=== PATIENT | male | born 1940 | race Caucasian/White ===

== ENCOUNTER 2016-09-06 05:28 | Inpatient (IN) | payer BC ==
[2016-08-31 11:04] LABS: BASOPHILS 0.5 %; BASOPHILS ABSOLUTE 0.03 10/3/uL (0.0-0.16); EOSINOPHILS 3.6 %; EOSINOPHILS ABSOLUTE 0.23 10/3/uL (0.0-0.53); HEMOGLOBIN 12.3 g/dL (13.6-17.8); IMMATURE GRANULOCYTES 0.2 %; IMMATURE GRANULOCYTES ABSOLUTE 0.01 10/3/uL (0.0-0.11); LYMPHOCYTES 36.8 %; LYMPHOCYTES ABSOLUTE 2.33 10/3/uL (0.67-4.30); MEAN CORPUS HGB CONC 33.2 g/dL (32.0-36.0); MEAN CORPUSCULAR HEMOGLOB 32.7 pg (26.0-34.0); MEAN CORPUSCULAR VOLUME 98.4 fL (80-100); MEAN PLATELET VOLUME 10.7 fL (9.2-13.0); MONOCYTES 9.6 %; MONOCYTES ABSOLUTE 0.61 10/3/uL (0.21-1.20); NEUTROPHILS 49.3 %; NEUTROPHILS ABSOLUTE 3.12 10/3/uL (2.02-8.40); PLATELET COUNT 218 10/3/uL (150-400); RBC DISTRIBUTION WIDTH 15.4 % (12.0-16.0); RED CELL COUNT 3.76 10/6/uL (4.7-6.1); WHITE BLOOD CELLS 6.3 10/3/uL (4.5-10.5)
[2016-08-31 11:05] LABS: MANUAL DIFF NO %
[2016-08-31 11:09] LABS: INTERNATIONAL NORMAL RATI 1.1 UNITS (-); PROTIME (NOT ORD) 13.7 SEC (12.0-14.5)
[2016-08-31 11:11] LABS: ASCORBIC ACID (UR NOT ORDER) NEG (NEG); BILIRUBIN, URINE NEGATIVE (NEG); KETONE, URINE NEGATIVE (NEG); LEUKOCYTE ESTERASE(NOT OR NEG (NEG); WBC (NOT ORDERED) (RFLEX) 1 (0-5)
[2016-08-31 11:30] LABS: % IRON SAT 20 % (20-50); A/G RATIO 1.3 (0.7-1.9); ALBUMIN 3.6 G/DL (3.5-5.0); ALKALINE PHOSPHATASE 58 U/L (45-117); BUN (BLOOD UREA NITROGEN) 15 MG/DL (6-23); CALCIUM, SERUM 9.1 MG/DL (8.5-10.4); CHLORIDE, SERUM 107 MMOL/L (96-112); CO2 (CARBON DIOXIDE) 30 MMOL/L (24-34); CREATININE 1.27 MG/DL (0.70-1.30); GFR AFRICAN AMERICAN 63 ML/MIN (>=60); GFR NON AFRICAN AMERICAN 55 ML/MIN (>=60); GLOBULIN 2.8 G/DL (2.5-4.1); GLUCOSE, SERUM 81 MG/DL (60-99); IRON BINDING CAPACITY 345 MCG/DL (250-450); IRON, SERUM 68 MCG/DL (35-150); POTASSIUM, SERUM 4.7 MMOL/L (3.5-5.3); SGOT(AST) 13 U/L (5-40); SGPT(ALT) 18 U/L (5-65); SODIUM, SERUM 139 MMOL/L (135-148); TOTAL BILIRUBIN 0.4 MG/DL (0-1.2); TOTAL PROTEIN 6.4 G/DL (6.0-8.5)
--- NOTE | ~2016-09-06 | CN ---
Consultation Report [facility] [address] [place]. [address] NAME: DRAKE VIGIL : 39 STATUS : ADM IN PAT#: [id number] AGE: 75 ADM/REG DATE : 09/06/16 MR#: [id number] REPORT SERV DATE: 09/07/16 DICTATED BY: MAURISIO HUGO DATE: 09/07/16 REPORT STATUS : Draft TRANSCRIBED BY: MODL DATE: 09/07/16 DATE OF CONSULTATION: 09/07/2016 REASON FOR CONSULTATION: Diabetes management. HISTORY OF PRESENT ILLNESS: The patient is a 75-year-old male. He is status post aortic valve replacement and CABG. Reason for consultation is diabetes management. The patient has been on an insulin drip since surgery. He is normally controlled on oral medications at home, specifically Glucophage 1000 b.i.d., Actos 45, and Glucotrol 10 b.i.d. He states his average A1c is 6.5, rarely over 7, his last available from August of this year is 6.1. He rates his appetite as fair as although talking to nursing, he seems to be eating less than 25% meals, but has had some p.o. intake today. He was managed the majority of postop day one with insulin drip 1-3 units. He did require titration up to 5 units today, but has now trended back down to 2 units. He reports no nausea, vomiting, or other obvious indicators of decreased p.o. intake. Otherwise, he is without complaints. PAST MEDICAL HISTORY: Coronary disease, diabetes, and he has an upcoming surgery for hernia repair. PAST SURGICAL HISTORY: As covered above. HOME MEDICATIONS: Aspirin 81, Lipitor 20, Cosopt eye drops, Glucotrol 10 b.i.d., Trandate 100 b.i.d., Xalatan eye drops, Glucophage 1000 b.i.d., and Actos 45. ALLERGIES: NONE. FAMILY HISTORY: Noncontributory. SOCIAL HISTORY: Noncontributory. REVIEW OF SYSTEMS: He is currently not having shortness of breath, chest pain, nausea, or vomiting. PHYSICAL EXAMINATION: VITAL SIGNS: BP 126/62, temp 98, pulse 63, respirations 30, sat 98%. GENERAL: He is awake, alert, and oriented. HEENT: Normocephalic and atraumatic. Sclerae anicteric. NECK: Supple. HEART: Regular rate and rhythm. LUNGS: Clear anteriorly. ABDOMEN: Nontender and nondistended. NEUROLOGIC: Nonfocal. LABORATORY DATA: Sodium 144, potassium 4.3, chloride 115, CO2 of 22, BUN and creatinine 24 and 1.24, creatinine is down from 1.4 yesterday. White count is 10.5, H and H 9.8 and 29.2, Consultation Report [address] [address] NAME: DRAKE VIGIL : 39 STATUS : ADM IN [facility]#: [id number] AGE: 75 ADM/REG DATE : 09/06/16 MR#: [id number] REPORT SERV DATE: 09/07/16 DICTATED BY: MAURISIO HUGO DATE: 09/07/16 REPORT STATUS : Draft TRANSCRIBED BY: RORO DATE: 09/07/16 platelets are 108. Blood sugars have been averaging under 150 on 2-5 units of IV insulin. ASSESSMENT: Diabetes mellitus, previously controlled on oral meds at home with excellent A1cs, postop from CABG and valve replacement. PLAN: We will transition drip to off. We will transition over to sliding scale and eventually p.o. meds. We will continue to follow. Thank you for the consultation. FARIDA/RORO Maurisio Hugo M.D. / [id number] CC: Placido Arboleda MD
--- NOTE | ~2016-09-06 | DS ---
Discharge Summary [facility] [address] [place]. [address] NAME: DRAKE VIGIL : 39 STATUS : DIS IN PAT#: [id number] AGE: 76 ADM/REG DATE : 09/06/16 MR#: [id number] REPORT SERV DATE: 11/23/16 DICTATED BY: LORENZO FORTE DATE: 11/22/16 REPORT STATUS : Draft TRANSCRIBED BY: RORO DATE: 11/22/16 Data Collection from hospitalization DISCHARGE DIAGNOSES: 1. Aortic valve stenosis, status post aortic valve replacement. 2. Coronary artery disease, status post coronary artery bypass grafting. 3. Type 2 non-insulin dependent diabetes mellitus. 4. Hypertension. 5. Hyperlipidemia. 6. Obesity. 7. Glaucoma. CONSULTATIONS: Dr. Aric Steele and Dr. Americo Graham. PROCEDURES PERFORMED: Aortic valve replacement using a 27 mm pericardial valve (Magna Ease); coronary artery bypass grafting x5 with ADDISON to the mid LAD into the distal left anterior descending vessel as a sequential graft, reverse saphenous vein graft placed to the first obtuse marginal, reverse saphenous vein graft placed to the third obtuse marginal, reverse saphenous vein graft placed to the posterior descending artery; endoscopic vein harvest of the saphenous vein from the right and left side; transesophageal echocardiography on 09/06/2016. PATHOLOGY: Aortic valve replacement - nodular calcification of valvular leaflets. DISCHARGE MEDICATIONS: Cordarone 200 mg twice a day, aspirin 81 mg daily, Lipitor 40 mg at bedtime, Cosopt one drop twice a day, Lasix 20 mg daily as instructed, Glucotrol 10 mg twice a day, [place] 5/325 one to two tablets every four hours as needed, Xalatan one drop at bedtime both eyes, Glucophage 1000 mg with breakfast and supper, Lopressor 12.5 mg twice a day, Protonix 40 mg before breakfast, Actos 45 mg every morning, K-Dur 20 mEq daily, Jantoven 3 mg every evening. CONDITION AT DISCHARGE: Stable. DISPOSITION: The patient was discharged home on a low-cholesterol, low-sodium, 1800-calorie cardiac/diabetic diet with no concentrated carbohydrates, and activities as instructed. He would follow up with Héctor Ross on 10/21/[address] Tyhsawn Ko on 09/30/2016. He would follow up with Dr. Ofe Perez on 09/24/2016. He would follow up in the [facility] on 09/13/2016 and would follow up at cardiac rehab at [facility] on 10/18/2016. HOSPITAL COURSE: This is a 75-year-old male who has a history of aortic valve stenosis and recently diagnosis of coronary artery disease. His main complaint is that of fatigue. He does deny dyspnea and angina. Echocardiography demonstrated good ventricular function with ejection fraction of 60%. Valve area was estimated at 0.75 cm2 with peak gradient of 79 mmHg. He has significant 3+ vessel coronary disease. The ascending aorta was mildly enlarged at 4 cm. The aortic root was not dilated. He had a tricuspid aortic valve. Treatment options were discussed and it was elected to proceed with surgical intervention. He was admitted to the hospital at this time for further evaluation and treatment. Discharge Summary [place] [id number] [facility] [place]. [address] NAME: DRAKE VIGIL : 39 STATUS : DIS IN PAT#: [id number] AGE: 76 ADM/REG DATE : 09/06/16 MR#: [id number] REPORT SERV DATE: 11/23/16 DICTATED BY: LORENZO FORTE DATE: 11/22/16 REPORT STATUS : Draft TRANSCRIBED BY: RORO DATE: 11/22/16 Upon admission, he was taken to the operating room where he underwent the above-mentioned procedure. He tolerated this well and there were no complications and postoperatively, the patient was seen by Dr. Americo Graham. The patient was still intubated and sedated. Cardene drip was being weaned. Statin agent was going to be resumed. Aspirin was resumed as well. He had been on Coumadin for three months after the pacing wires were removed. He had no edema on postop day #1. He was just sitting in a chair. He has had 1+ pedal edema. Creatinine level was 1.24. INR level was 1.3. Cardene drip was being weaned as tolerated. The patient was seen by Dr. Aric Steele regarding diabetes management. The patient's diabetes has previously been controlled on oral medications at home with excellent hemoglobin A1c. We were going to transition the drip to off. We were going to transition over to sliding scale and eventually oral medications. Creatinine level was now 1.24. White count was 10.5. Mediastinal chest tube was removed. He was transferred to the step- down unit. He was evaluated by Physical Therapy. He has had no chest pain, shortness of breath, or palpitations. On 09/09/2016, he had no dyspnea or chest pain. Creatinine was 1.26. He was in sinus rhythm. He had no edema. He had decreased breath sounds in his lung bases. Pepcid was discontinued. Discharge planning was performed. He was wanting to go home. INR level was 1.3. Blood pressure was well controlled. Coumadin had begun. On 09/10/2016, he continued to be well. Chest x-ray showed small left effusion. He was alert and oriented. Discharge instructions were given. Due to his improved and stable condition, he was discharged home with the above-stated instructions. Information collected by: Winnie Stafford I submit the above information as my discharge summary. TG/MODL Lorenzo Forte M.D. / [id number] CC: Placido Arboleda MD Allen E Atchley, M.D.
--- NOTE | ~2016-09-06 | OP ---
Record Of Operation [facility] [address] [place]. [address] NAME: DRAKE VIGIL : 39 STATUS : ADM IN PAT#: [id number] AGE: 75 ADM/REG DATE : 09/06/16 MR#: [id number] REPORT SERV DATE: 09/08/16 DICTATED BY: VALENTINA FORTE DATE: 09/08/16 REPORT STATUS : Draft TRANSCRIBED BY: MODL DATE: 09/08/16 DATE OF PROCEDURE: 09/06/2016 PREOPERATIVE DIAGNOSES: 1. Aortic valve stenosis. 2. Coronary artery disease. 3. Type 2 xsn-ieqdqyv-ybhnluaag diabetes mellitus. 4. Hypertension. 5. Hyperlipidemia. 6. Obesity. POSTOPERATIVE DIAGNOSES: 1. Aortic valve stenosis. 2. Coronary artery disease. 3. Type 2 xmq-meoesup-uhmojwgaz diabetes mellitus. 4. Hypertension. 5. Hyperlipidemia. 6. Obesity. PROCEDURE PERFORMED: 1. Aortic valve replacement using a 27 mm pericardial valve (Magna Ease). 2. Coronary artery bypass grafting x5, left internal mammary artery placed to the mid left anterior descending and to the distal left anterior descending vessel as a sequential graft. Reverse saphenous vein graft placed to the first obtuse marginal, reverse saphenous vein graft placed to the third obtuse marginal, reverse saphenous vein graft placed to the posterior descending artery. 3. Endoscopic vein harvest, saphenous vein from the right and left thighs. 4. Transesophageal echocardiography. SURGEON: Valentina Forte M.D. PATIENT REGISTRAR: Morro Martino and Guero Pereira. ANESTHESIA: General with Dr. Quiles. CARDIOLOGISTS: Tyshawn Ko M.D. 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 His main complaint is that of fatigue. He does deny dyspnea and angina. Echocardiography demonstrated good ventricular function with EF of 60%. Valve area was estimated at 0.75 cm2 with a peak gradient of 79 mmHg. He has significant 2+ vessel coronary disease. Ascending aorta was mildly enlarged at 4 cm. The aortic root was not dilated. He had a tricuspid aortic valve. We saw the patient in our office and discussed possible coronary bypass grafting and aortic valve replacement with his family and after discussing the operation, its indications, risks, they wished to proceed. STS calculated risk of mortality was 3%, morbidity and Record Of Operation [place] [id number] [place]. [address] NAME: DRAKE VGIIL : 39 STATUS : ADM IN PAT#: [id number] AGE: 75 ADM/REG DATE : 09/06/16 MR#: [id number] REPORT SERV DATE: 09/08/16 DICTATED BY: VALENTINA FORTE DATE: 09/08/16 REPORT STATUS : Draft TRANSCRIBED BY: RORO DATE: 09/08/16 mortality was less than 15%. FINDINGS AT OPERATION: 1. Cross-clamp 135 minutes. Total pump time 154 minutes. 2. LAD in the mid vessel was a 2 mm moderately diseased vessel. A 1 mm probe could not pass approximately 2 cm distal down the LAD into the distal portion of the LAD. There was good runoff through the JOSE LUIS graft as assessed by Doppler; however, I felt that sequential grafting should be performed to guarantee or ensure the good perfusion of the distal LAD. 3. The distal LAD was 1.5 mm and heavily diseased. The end of this 2 mm ADDISON was anastomosed to it with good runoff. 4. The diagonal graft vessel was too small to graft. 5. The first obtuse marginal was 2 mm moderately diseased. A 4.5 mm RSVG was anastomosed to it with good runoff. 6. The third obtuse marginal was 1.5 mm mildly diseased. A 4.5 mm RSVG was anastomosed to it with fair runoff. This was a small target. 7. The posterior descending artery was 1.75 mm and moderately diseased. A 4 mm RSVG was anastomosed to it with good runoff. Right coronary and posterior descending vessels were very heavily atherosclerotic based on visual and tactile examination. 8. The vein quality was good from the thighs. Unfortunately, below the knee, we felt that the size of the saphenous vein on the right side was not adequate for grafting material and therefore, we harvested the left thigh saphenous vein. 9. The aortic valve had three leaflets that were heavily calcified. Coronary anatomy was normal. There was no annular root dilatation. 10.27 mm pericardial valve was implanted in the aortic position (Magna Ease). We used 16 Cor-Knots to secure the valve in place. 11.ZEE at the end of the operation demonstrated good ventricular function. There was significant LVH. The aortic valve prosthesis was well seated without perivalvular leak. PATHOLOGIC SPECIMENS: Include aortic valve leaflets. DESCRIPTION OF PROCEDURE: The patient was brought to the operating suite where general anesthesia was induced. Airway was secured with an endotracheal tube. Lines were secured by Anesthesia. Joshua catheter was placed. The patient's chest, abdomen, groin, and legs were prepped with Hibiclens and ChloraPrep, and draped with Ioban sterile sheets. ZEE probe was placed by Dr. Quiles and examination carried out as discussed above. The ascending aorta was not significantly dilated. There was a heavily calcified aortic valve with decreased excursion of leaflets. The saphenous vein was harvested from the right leg and left thigh using endoscopic technique. Briefly, the vein was cut directly down upon through a 2 cm incision placed in the medial aspect of the right knee. Then, using VasoView trocars, the vessel was dissected from the surrounding subcutaneous tissue and fat. The side branches were identified, ligated, divided with cautery. Once adequate length of vein had been dissected, a counter incision made up in the groin where the vein was ligated, divided, and brought through the knee incision. At the level of the knee, we were concerned that the size caliber of the Record Of Operation [place] [id number] [facility] [place]. [address] NAME: DRAKE VIGIL : 39 STATUS : ADM IN [facility]#: [id number] AGE: 75 ADM/REG DATE : 09/06/16 MR#: [id number] REPORT SERV DATE: 09/08/16 DICTATED BY: VALENTINA FORTE DATE: 09/08/16 REPORT STATUS : Draft TRANSCRIBED BY: RORO DATE: 09/08/16 vein distally to the right knee would be insufficient for graft material. Therefore, the left greater saphenous vein was harvested in an identical fashion. Once this was completed, both leg wounds were made hemostatic and closed in layers with absorbable suture and skin closed in subcuticular fashion. The vein quality from both legs was good. Then, a midline sternal incision was made and the sternum was opened with a saw. The left hemithorax was elevated and the endothoracic fascia was incised. Side branches of the JOSE LUIS were clipped and divided. Once the JOSE LUIS was completely dissected, the patient was anticoagulated with heparin and chest tube was placed in the left pleural cavity. The JOSE LUIS was clipped and divided distally. There was good flow through the JOSE LUIS and its pedicle was infiltrated with papaverine. Then, the Enil retractor was placed in the pericardium over from innominate vein. The diaphragm was T'd and tacked to the side of the chest wall. Cannulation pursestring sutures were placed and cannulation was carried out in routine manner. A retrograde cardioplegia cannula was placed in the coronary sinus. When all was in readiness, the patient was placed on cardiopulmonary bypass. The distal targets were marked out on the heart as described in the findings. The diagonal vessel was looked for but was not seen. Then, a heart support was placed. The aorta was crossclamped and an initial dose of cold blood cardioplegia solution was given in a combination of antegrade and retrograde fashion and then in a retrograde manner at 20 to 25 minutes intervals. Following the first dose of cardioplegia, the heart was positioned for the first obtuse marginal graft. Arteriotomy was made. The vein graft was trimmed and anastomosed to it with 7-0 Prolene. This vein graft was measured back to the left side of the ascending aorta, where it was divided. We then positioned the heart for the third obtuse marginal graft. Arteriotomy was made. The vein graft was trimmed and anastomosed to it with 7-0 Prolene. This vein graft was then measured back to the left side of the ascending aorta, where it was divided. We then positioned the heart for the PDA graft. Arteriotomy was made. The vein graft was trimmed and anastomosed to it with 7-0 Prolene. It should be noted there was extensive atherosclerotic changes of the right coronary artery and posterior descending artery seen during surgery and easily palpated. The vein graft was trimmed and anastomosed to the PDA vessel with 7-0 Prolene. The vein graft was then measured right side of the ascending aorta where it was divided. Another dose of cardioplegia was given and we positioned the heart for the LAD graft. Arteriotomy was made in the mid LAD. There was a heavily diseased vessel. We tried to pass a 1.5 mm probe distally. Unfortunately, we could only reach about 1 cm and 2 cm distal and then the probe would not pass. This was exchanged for a 1 mm probe likewise would not pass. Therefore, we opened this heavily diseased vessel distal to this point of critical stenosis. A 1-mm probe was passed from this point distally. We elected to perform sequential grafting of the JOSE LUIS to the LAD system. The JOSE LUIS was brought out of the left chest through a notch in the pericardium over the pulmonary artery. The location of these anastomosis on this JOSE LUIS pedicle was selected. The JOSE LUIS pedicle was trimmed at the 1st anastomosis site. Corresponding arteriotomy was made in the JOSE LUIS and a [id number] JOSE LUIS to mid LAD anastomosis was performed with a running suture of 8-0 Prolene. The endothoracic fascia was tacked to the epicardium. Then, the end of the graft was trimmed and anastomosed to the distal Record Of Operation [address] [address] NAME: DRAKE VIGIL : 39 STATUS : ADM IN [facility]#: [id number] AGE: 75 ADM/REG DATE : 09/06/16 MR#: [id number] REPORT SERV DATE: 09/08/16 DICTATED BY: VALENTINA FORTE DATE: 09/08/16 REPORT STATUS : Draft TRANSCRIBED BY: MODColton DATE: 09/08/16 arteriotomy site with a running suture of 8-0 Prolene. Following this sequential graft, another dose of cardioplegia was given and the heart support was removed. An LV vent was then placed through the right superior pulmonary vein and directed into the left ventricle. Hockey-stick type aortotomy incision was made. The aortic valve was inspected. It had three leaflets that were heavily calcified with partial fusion of the right and left cusps. Coronary anatomy was normal. There did not appear to be any significant aortic root or ascending aortic dilatation. The aortic valve leaflets were excised and the annulus debrided of all calcific material. Iced saline was then used to irrigate the ascending aorta and left ventricle copiously to remove any particulate matter. We then sized the aortic valve and a 27 mm pericardial valve was selected (Magna Ease). Then, interrupted horizontal mattress sutures of pledgeted 2-0 Tycron were placed circumferentially about the aortic valve annulus. The pledgets were on the ventricular side. The sutures passed through the sewing cuff of the prosthetic valve. This was lowered into position and each suture individually secured and divided using a Cor-Knot device. A total of 16 Cor-Knots were utilized. Following implantation of the valve, inspection demonstrated no significant obstruction of the right and left main coronary ostia. Warming was begun. The aortotomy incision was closed in a two-layer fashion with running pledgeted suture of 5-0 Prolene. Next, three 5 mm punch aortotomies were made in the ascending aorta. Each of the three proximal ends of the vein grafts then anastomosed to these sites with running sutures of 6-0 Prolene. The patient was placed in Trendelenburg and a final dose of warm blood cardioplegia was given in a retrograde fashion. Ventricular and atrial pacing wires were placed. Following the last dose of cardioplegia and deairing of the aorta, the aortic cross clamp was removed. The distal and proximal anastomoses and suture lines were all inspected and made hemostatic. Doppler demonstrated good flow through the grafts. The heart was paced in AV sequential fashion and ventilations were begun. When the heart demonstrated good contractility, it was allowed to fill and eject. De-airing was monitored with ZEE. When deairing was completed, the LV vent was removed and these pursestring sutures tied and reinforced. The patient was weaned from cardiopulmonary bypass with inotropic support. The venous cannulas were removed and these pursestring sutures tied. ZEE examination demonstrated good ventricular function. The aortic valve prosthesis was well seated without perivalvular leak. There was very minimal mitral insufficiency. Protamine was administered by Anesthesia and following a period of hemodynamic stability, the aortic cannula was removed and these pursestring sutures tied and reinforced. The patient continued do well and chest was irrigated copiously with saline. Meticulous hemostasis was obtained. Hemasorb was placed along the cut edge of the sternum. Once hemostasis was assured, the pericardium was draped over the anterior surface of the heart and tacked into position. Doppler demonstrated good flow through the grafts following protamine administration. Then, chest tubes were placed and the sternum reapproximated with eight sternal wires. The clavipectoral fascia and linea alba were closed with #1 Stratafix. Record Of Operation [facility] [address] [facility] [place]. [address] NAME: DRAKE VIGIL : 39 STATUS : ADM IN [facility]#: [id number] AGE: 75 ADM/REG DATE : 09/06/16 MR#: [id number] REPORT SERV DATE: 09/08/16 DICTATED BY: VALENTINA FORTE DATE: 09/08/16 REPORT STATUS : Draft TRANSCRIBED BY: RORO DATE: 09/08/16 The subcutaneous tissue was closed and skin closed in subcuticular fashion. The patient tolerated the procedure well. There were no complications. Sponge and needle counts were correct. DISPOSITION: The patient was left intubated, sedated, and transported to the intensive care unit in stable condition. JAIRO/RORO Valentina Forte M.D. / [id number] CC: Placido Arboleda MD C. Samuel Ledford, M.D.
[~2016-09-06 05:28] MED LIST: ACTOS45 PO; ASAB PO; COSOPT OPH; GLUCOPHAGE1000 MG PO; GLUCOTRO10 PO; LIPITOR20 PO; TRANDAT100 PO; XALAT OPH
[2016-09-06 14:10] LABS: BE (BASE EXCESS) -3.3 MEQ/L (0 +/- 2.5); HCO3 (ACTUAL BICARBONATE) 20.8 MEQ/L (23-27); INSTRUMENT SERIAL # 11843; PCO2 (CO2 TENSION) 34 MMHG (35-45); PO2 (O2 TENSION) 209 MMHG (79-93); pH 7.41 (7.37-7.43)
[2016-09-06 14:11] LABS: CARBOXYHEMOGLOBIN 0.3 % (0-3); HEMOBLOGIN CONTENT 11.1 G/DL (14-18); METHEMOGLOBIN 0.5 % (0-3); MODE SIMV; O2 CONTENT 15.7 VOL% (18-24); OPERATOR ID 18642; PRESSURE SUPPORT 0 cm.H2O; SAMPLE Arterial; TIDAL VOLUME 800 ML
[2016-09-06 14:20] LABS: HEMOGLOBIN 10.4 g/dL (13.6-17.8)
[2016-09-06 14:25] LABS: HEMATOCRIT 30.7 % (40.0-51.0); PLATELET COUNT 113 10/3/uL (150-400)
[2016-09-06 14:28] LABS: INTERNATIONAL NORMAL RATI 1.5 UNITS (-); PARTIAL THROMBO TIME 35.3 SEC (22.5-37.2); PROTIME (NOT ORD) 17.8 SEC (12.0-14.5)
[2016-09-06 14:33] LABS: BUN (BLOOD UREA NITROGEN) 20 MG/DL (6-23); CALCIUM, SERUM 8.4 MG/DL (8.5-10.4); CHLORIDE, SERUM 115 MMOL/L (96-112); CO2 (CARBON DIOXIDE) 24 MMOL/L (24-34); CREATININE 1.41 MG/DL (0.70-1.30); GFR AFRICAN AMERICAN 56 ML/MIN (>=60); GFR NON AFRICAN AMERICAN 48 ML/MIN (>=60); GLUCOSE, SERUM 66 MG/DL (60-99); SODIUM, SERUM 146 MMOL/L (135-148)
[2016-09-06 20:27] LABS: HEMATOCRIT 31.1 % (40.0-51.0); HEMOGLOBIN 10.4 g/dL (13.6-17.8)
[2016-09-06 20:33] LABS: BE (BASE EXCESS) -4.7 MEQ/L (0 +/- 2.5); CARBOXYHEMOGLOBIN 0.3 % (0-3); DEVICE NC; HCO3 (ACTUAL BICARBONATE) 20.9 MEQ/L (23-27); HEMOBLOGIN CONTENT 11.1 G/DL (14-18); INSTRUMENT SERIAL # 11843; METHEMOGLOBIN 0.5 % (0-3); OPERATOR ID 13744; PCO2 (CO2 TENSION) 41 MMHG (35-45); PO2 (O2 TENSION) 97 MMHG (79-93); SAMPLE Arterial; pH 7.33 (7.37-7.43)
[2016-09-06 20:36] LABS: POTASSIUM, SERUM 4.6 MMOL/L (3.5-5.3)
[2016-09-07 03:39] LABS: HEMOGLOBIN 10.2 g/dL (13.6-17.8); MEAN CORPUSCULAR HEMOGLOB 32.6 pg (26.0-34.0); MEAN CORPUSCULAR VOLUME 95.8 fL (80-100); MEAN PLATELET VOLUME 11.1 fL (9.2-13.0); PLATELET COUNT 108 10/3/uL (150-400); RBC DISTRIBUTION WIDTH 15.5 % (12.0-16.0); RED CELL COUNT 3.13 10/6/uL (4.7-6.1); WHITE BLOOD CELLS 10.5 10/3/uL (4.5-10.5)
[2016-09-07 03:40] LABS: MANUAL DIFF YES %
[2016-09-07 03:45] LABS: INTERNATIONAL NORMAL RATI 1.3 UNITS (-); PROTIME (NOT ORD) 16.2 SEC (12.0-14.5)
[2016-09-07 03:51] LABS: BUN (BLOOD UREA NITROGEN) 24 MG/DL (6-23); CALCIUM, SERUM 8.2 MG/DL (8.5-10.4); CHLORIDE, SERUM 115 MMOL/L (96-112); CO2 (CARBON DIOXIDE) 22 MMOL/L (24-34); CREATININE 1.24 MG/DL (0.70-1.30); GFR AFRICAN AMERICAN 65 ML/MIN (>=60); GFR NON AFRICAN AMERICAN 56 ML/MIN (>=60); GLUCOSE, SERUM 116 MG/DL (60-99); POTASSIUM, SERUM 4.5 MMOL/L (3.5-5.3); SODIUM, SERUM 144 MMOL/L (135-148)
[2016-09-07 04:01] LABS: BAND NEUTROPHILS 12 %; LYMPHOCYTES 8 %; LYMPHOCYTES ABSOLUTE (CALC) 0.84 10/3/uL (0.67-4.30); NEUTROPHILS ABSOLUTE (CALC) 9.66 10/3/uL (2.02-8.40); PLATELET ESTIMATE SLT DEC (ADEQUATE); RBC MORPHOLOGY NORM (NORMAL); SEGMENTED NEUTROPHIL (0) 80 %; TOTAL NUCLEATED CELLS 100
[2016-09-07 15:50] LABS: HEMATOCRIT 29.2 % (40.0-51.0); HEMOGLOBIN 9.8 g/dL (13.6-17.8)
[2016-09-07 16:14] LABS: POTASSIUM, SERUM 4.3 MMOL/L (3.5-5.3)
[2016-09-08 03:39] LABS: BASOPHILS 0 %; EOSINOPHILS 0 %; HEMATOCRIT 28.2 % (40.0-51.0); HEMOGLOBIN 9.4 g/dL (13.6-17.8); IMMATURE GRANULOCYTES 0.4 %; IMMATURE GRANULOCYTES ABSOLUTE 0.05 10/3/uL (0.0-0.11); LYMPHOCYTES 13.6 %; LYMPHOCYTES ABSOLUTE 1.69 10/3/uL (0.67-4.30); MEAN CORPUS HGB CONC 33.3 g/dL (32.0-36.0); MEAN CORPUSCULAR HEMOGLOB 32.1 pg (26.0-34.0); MEAN CORPUSCULAR VOLUME 96.2 fL (80-100); MEAN PLATELET VOLUME 11.1 fL (9.2-13.0); MONOCYTES ABSOLUTE 1.37 10/3/uL (0.21-1.20); NEUTROPHILS ABSOLUTE 9.29 10/3/uL (2.02-8.40); PLATELET COUNT 100 10/3/uL (150-400); RBC DISTRIBUTION WIDTH 15.8 % (12.0-16.0); RED CELL COUNT 2.93 10/6/uL (4.7-6.1); WHITE BLOOD CELLS 12.4 10/3/uL (4.5-10.5)
[2016-09-08 03:40] LABS: MANUAL DIFF NO %
[2016-09-08 03:46] LABS: INTERNATIONAL NORMAL RATI 1.3 UNITS (-); PROTIME (NOT ORD) 15.8 SEC (12.0-14.5)
[2016-09-08 03:53] LABS: CALCIUM, SERUM 8.4 MG/DL (8.5-10.4); CHLORIDE, SERUM 111 MMOL/L (96-112); CO2 (CARBON DIOXIDE) 22 MMOL/L (24-34); CREATININE 1.56 MG/DL (0.70-1.30); GFR AFRICAN AMERICAN 49 ML/MIN (>=60); GFR NON AFRICAN AMERICAN 43 ML/MIN (>=60); POTASSIUM, SERUM 4.6 MMOL/L (3.5-5.3); SODIUM, SERUM 141 MMOL/L (135-148)
[2016-09-08 03:58] LABS: BUN (BLOOD UREA NITROGEN) 38 MG/DL (6-23); GLUCOSE, SERUM 239 MG/DL (60-99)
[2016-09-09 04:49] LABS: HEMATOCRIT 27.4 % (40.0-51.0); HEMOGLOBIN 9.3 g/dL (13.6-17.8); MEAN CORPUS HGB CONC 33.9 g/dL (32.0-36.0); MEAN CORPUSCULAR HEMOGLOB 32.7 pg (26.0-34.0); MEAN CORPUSCULAR VOLUME 96.5 fL (80-100); MEAN PLATELET VOLUME 11.6 fL (9.2-13.0); PLATELET COUNT 81 10/3/uL (150-400); RBC DISTRIBUTION WIDTH 15.7 % (12.0-16.0); RED CELL COUNT 2.84 10/6/uL (4.7-6.1); WHITE BLOOD CELLS 11.3 10/3/uL (4.5-10.5)
[2016-09-09 04:50] LABS: MANUAL DIFF YES %
[2016-09-09 04:54] LABS: INTERNATIONAL NORMAL RATI 1.3 UNITS (-); PROTIME (NOT ORD) 15.8 SEC (12.0-14.5)
[2016-09-09 05:06] LABS: BUN (BLOOD UREA NITROGEN) 33 MG/DL (6-23); CALCIUM, SERUM 8.3 MG/DL (8.5-10.4); CHLORIDE, SERUM 113 MMOL/L (96-112); CO2 (CARBON DIOXIDE) 25 MMOL/L (24-34); CREATININE 1.26 MG/DL (0.70-1.30); GFR AFRICAN AMERICAN 64 ML/MIN (>=60); GFR NON AFRICAN AMERICAN 55 ML/MIN (>=60); GLUCOSE, SERUM 176 MG/DL (60-99); POTASSIUM, SERUM 4.2 MMOL/L (3.5-5.3); SODIUM, SERUM 145 MMOL/L (135-148)
[2016-09-09 06:02] LABS: BAND NEUTROPHILS 1 %; BASOPHILS 1 %; BASOPHILS ABSOLUTE (CALC) 0.11 10/3/uL (0.0-0.16); IMMATURE GRANS ABSOLUTE (CALC) 0.68 10/3/uL (0.0-0.11); LYMPHOCYTES 24 %; LYMPHOCYTES ABSOLUTE (CALC) 2.71 10/3/uL (0.67-4.30); METAMYELOCYTES 6 %; SEGMENTED NEUTROPHIL (0) 68 %; TOTAL NUCLEATED CELLS 100
[2016-09-09 06:03] LABS: PLATELET ESTIMATE DEC (ADEQUATE); RBC MORPHOLOGY NORM (NORMAL)
[2016-09-10 05:46] LABS: HEMATOCRIT 27.4 % (40.0-51.0); HEMOGLOBIN 9.2 g/dL (13.6-17.8); INTERNATIONAL NORMAL RATI 1.6 UNITS (-); MEAN CORPUS HGB CONC 33.6 g/dL (32.0-36.0); MEAN CORPUSCULAR HEMOGLOB 32.5 pg (26.0-34.0); MEAN CORPUSCULAR VOLUME 96.8 fL (80-100); MEAN PLATELET VOLUME 11.2 fL (9.2-13.0); PLATELET COUNT 80 10/3/uL (150-400); RBC DISTRIBUTION WIDTH 15.6 % (12.0-16.0); RED CELL COUNT 2.83 10/6/uL (4.7-6.1); WHITE BLOOD CELLS 9.1 10/3/uL (4.5-10.5)
[2016-09-10 05:47] LABS: MANUAL DIFF YES %; PROTIME (NOT ORD) 18.7 SEC (12.0-14.5)
[2016-09-10 05:53] LABS: CALCIUM, SERUM 8.2 MG/DL (8.5-10.4); CHLORIDE, SERUM 110 MMOL/L (96-112); CO2 (CARBON DIOXIDE) 25 MMOL/L (24-34); CREATININE 1.14 MG/DL (0.70-1.30); GFR AFRICAN AMERICAN 72 ML/MIN (>=60); GFR NON AFRICAN AMERICAN 62 ML/MIN (>=60); GLUCOSE, SERUM 150 MG/DL (60-99); SODIUM, SERUM 141 MMOL/L (135-148)
[2016-09-10 05:54] LABS: BUN (BLOOD UREA NITROGEN) 22 MG/DL (6-23)
[2016-09-10 06:21] LABS: BAND NEUTROPHILS 1 %; EOSINOPHILS 1 %; EOSINOPHILS ABSOLUTE (CALC) 0.09 10/3/uL (0.0-0.53); IMMATURE GRANS ABSOLUTE (CALC) 0.09 10/3/uL (0.0-0.11); LYMPHOCYTES 27 %; LYMPHOCYTES ABSOLUTE (CALC) 2.46 10/3/uL (0.67-4.30); METAMYELOCYTES 1 %; MONOCYTES 7 %; MONOCYTES ABSOLUTE (CALC) 0.64 10/3/uL (0.21-1.20); NEUTROPHILS ABSOLUTE (CALC) 5.82 10/3/uL (2.02-8.40); SEGMENTED NEUTROPHIL (0) 63 %; TOTAL NUCLEATED CELLS 100
[2016-09-10 06:22] LABS: PLATELET ESTIMATE DEC (ADEQUATE); POLYCHROMASIA 1+ (2-5/OIF) (0-1/OIF)
[2016-09-10] MEDS ORDERED: CORDARONE PO (15:38)
[2016-09-10] MEDS ORDERED: LOP25 PO (15:38)
[2016-09-10] MEDS ORDERED: PROTONIX PO (15:38)
[2016-09-10] MEDS ORDERED: L20 PO (15:39)
[2016-09-10] MEDS ORDERED: KDUR20 PO (15:39)
[2016-09-10] MEDS ORDERED: NORCO1 TA1 PO (15:40)
[2016-09-10] MEDS ORDERED: JANTOVEN3 MG PO (15:41)
== END 2016-09-10 18:28 | disposition home or self-care (01) | DRG 220 ==
LOC: SDC/OF 05:28 → CVICU 13:05 → 5NO 09-08 16:50
PROVIDERS: Nurse Practitioner Adult Health; Nurse Practitioner Family; Thoracic Surgery (Cardiothoracic Vascular Surgery)
DX: I35.0 Nonrheumatic aortic (valve) stenosis (principal); J98.11 Atelectasis; D69.6 Thrombocytopenia, unspecified; E11.9 Type 2 diabetes mellitus without complications; Z68.32 Body mass index [BMI] 32.0-32.9, adult; I25.10 Atherosclerotic heart disease of native coronary artery without angina pectoris; Z79.899 Other long term (current) drug therapy; Z79.82 Long term (current) use of aspirin; Z79.84 Long term (current) use of oral hypoglycemic drugs; E66.9 Obesity, unspecified; E78.5 Hyperlipidemia, unspecified; I10 Essential (primary) hypertension; D64.9 Anemia, unspecified
CPT/HCPCS: 31720; 36415; 71010; 71020; 80048; 80053; 81001; 82330; 82803; 82805; 82947; 82962; 83036; 83540; 83550; 83735; 84132; 84295; 85014; 85018; 85025; 85049; 85347; 85610; 85730; 86850; 86900; 86901; 86920; 87641; 88305; 93005; 93312; 93320; 93325; 94002; 94640; 94660; 94770; 97161-GP; A9270-GY; C1713; C1769; C1894; J0690; J1644; J1940; J2150; J2250; J2370; J2440; J2720; J2795; J2930; J3010; J3475; J3480; P9045; P9047